=== PATIENT | female | born 1985 | race African-American/Black ===

== ENCOUNTER 2016-12-07 19:04 | Emergency (ER) | payer OTHER ==
[~2016-12-07] VITALS: Ht 165.1 cm; Wt 81.7 kg
[~2016-12-07 19:04] MED LIST: CLEOCIN HCL150 MG PO; IBUPROFEN 200200 M1 PO; IBUPROFEN 600600 M1 PO; IBUPROFEN 800800 M1 PO; JOLIVETTE0.35 MG PO; NOHOMEMEDICATIONS; NORCO 5-325 TA1 EACH PO; PRENATAL COMPL1 EACH PO; THERA FLU; VALIUM2 MG PO; XANAX 0.25 MG0.25 MG PO; [UNRECOGNIZED DRUG - REMARK] PO
[2016-12-07 19:56] LABS: URINE BILIRUBIN NEGATIVE (Negative); URINE BLOOD NEGATIVE (Negative); URINE COLOR YELLOW; URINE GLUCOSE-RANDOM* NEGATIVE (Negative); URINE KETONES NEGATIVE (Negative); URINE NITRITE NEGATIVE (Negative); URINE PROTEIN (DIPSTICK) NEGATIVE (Negative); URINE SPECIFIC GRAVITY 1.015 (1.003-1.035); URINE UROBILINOGEN 0.2 E.U./dl (0.2-1.0)
[2016-12-07 19:57] LABS: ABSOLUTE NEUTROPHILS 4.3 thou/uL (1.4-8.2); BASOPHILS 0.8 % (0.0-2.0); EOSINOPHILS 2.3 % (0.0-3.0); HEMOGLOBIN 11.8 gm/dL (12.0-15.0); LYMPHOCYTES 27.7 % (24.0-44.0); MCH 27.4 pg (26.0-34.0); MCHC 32.7 g/dL (28.0-37.0); MCV 83.8 fL (80.0-100.0); MONOCYTES 9.6 % (1.0-8.0); PLATELET COUNT 205 thou/uL (150-400); POLYS 59.6 % (36.0-66.0); RBC 4.29 mil/uL (4.20-5.00); WBC 7.2 thou/uL (4.0-11.0)
[2016-12-07 20:02] LABS: CALCIUM 8.6 mg/dL (8.5-10.1); CREATININE 0.9 mg/dL (0.6-1.0); MANUAL DIFF NO; POTASSIUM 3.8 mmol/L (3.5-5.1)
[2016-12-07 20:06] LABS: ALBUMIN 3.4 g/dL (3.4-5.0); DIRECT BILIRUBIN 0.1 mg/dL (<0.1-0.3); TOTAL BILIRUBIN 0.4 mg/dL (<0.1-1.0); TOTAL PROTEIN 7.3 g/dL (6.4-8.2)
[2016-12-07] MEDS ORDERED: AMOXICILLIN500 M1 PO (21:21)
[2016-12-07 21:41] VITALS: BP 111/81
== END 2016-12-07 21:44 | disposition home or self-care (01) ==
LOC: ER 19:04
PROVIDERS: Nurse Practitioner
DX: J32.9 Chronic sinusitis, unspecified (principal)

== ENCOUNTER 2017-05-03 22:48 | Emergency (ER) | payer OTHER ==
[~2017-05-03] VITALS: Ht 165.1 cm; Wt 83.9 kg
[~2017-05-03 22:48] MED LIST changes: +AMOXICILLIN500 M1 PO
[2017-05-03] MEDS ORDERED: MIRALAX17 GM PO (22:57)
[2017-05-03] MEDS ORDERED: BLISOVI 24 FE1 EACH PO (22:58)
[2017-05-03] MEDS ORDERED: QSYMIA 3.75 MG1 EACH PO (23:02)
[2017-05-03 23:15] LABS: URINE BILIRUBIN NEGATIVE (Negative); URINE BLOOD NEGATIVE (Negative); URINE COLOR YELLOW; URINE GLUCOSE-RANDOM* NEGATIVE (Negative); URINE KETONES NEGATIVE (Negative); URINE LEUKOCYTES-REFLEX NEGATIVE (Negative); URINE PROTEIN (DIPSTICK) NEGATIVE (Negative); URINE UROBILINOGEN 0.2 E.U./dl (0.2-1.0)
[2017-05-03 23:23] LABS: ABSOLUTE NEUTROPHILS 2.9 thou/uL (1.4-8.2); BASOPHILS 0.6 % (0.0-2.0); EOSINOPHILS 3.8 % (0.0-3.0); HEMATOCRIT 36.7 % (37.0-47.0); LYMPHOCYTES 40.6 % (24.0-44.0); MCHC 32.7 g/dL (28.0-37.0); MCV 85.7 fL (80.0-100.0); MONOCYTES 9.3 % (1.0-8.0); PLATELET COUNT 192 thou/uL (150-400); POLYS 45.7 % (36.0-66.0); RBC 4.28 mil/uL (4.20-5.00); RDW 14.5 % (10.5-14.5); WBC 6.3 thou/uL (4.0-11.0)
[2017-05-03 23:30] LABS: CALCIUM 7.9 mg/dL (8.5-10.1); CREATININE 0.8 mg/dL (0.6-1.0); MANUAL DIFF NO; POTASSIUM 3.6 mmol/L (3.5-5.1)
[2017-05-03 23:36] LABS: ALBUMIN 3.4 g/dL (3.4-5.0); TOTAL BILIRUBIN 0.4 mg/dL (<0.1-1.0); TOTAL PROTEIN 6.7 g/dL (6.4-8.2)
[2017-05-03] MEDS ORDERED: BENTYL 20 MG TA20 M1 PO (23:59)
[2017-05-03] MEDS ORDERED: ZOFRAN4 MG PO (23:59)
[2017-05-03] MEDS ORDERED: LOPERAMIDE 2 MG2 M1 PO (23:59)
[2017-05-04 00:24] VITALS: BP 134/68
== END 2017-05-04 00:26 | disposition home or self-care (01) ==
LOC: ER 22:48
PROVIDERS: Emergency Medicine
DX: K52.9 Noninfective gastroenteritis and colitis, unspecified (principal); Z98.890 Other specified postprocedural states